=== PATIENT | female | born 1965 | race Two or more races ===

== ENCOUNTER 2018-08-09 13:29 | Outpatient (CLI) | payer OTHER ==
[~2018-08-09 13:29] MED LIST: AXERT6.25 MG
== END 2018-08-09 13:36 | disposition home or self-care (01) ==
LOC: RAD 501 13:29
DX: M25.511 Pain in right shoulder (principal)

== ENCOUNTER 2018-09-01 09:12 | Outpatient (CLI) | payer OTHER | END 2018-09-01 09:21 | disposition home or self-care (01) | LOC: RAD 09:12 | DX: M25.511 Pain in right shoulder (principal); M75.51 Bursitis of right shoulder | CPT/HCPCS: 73219 ==

== ENCOUNTER → 2018-09-01 | Outpatient (CLI) | payer OTHER | END | disposition home or self-care (01) | LOC: NUCLEAR 08-23 10:30 | DX: M81.0 Age-related osteoporosis without current pathological fracture (principal) ==